=== PATIENT | female | born 1965 | race Caucasian/White ===

== ENCOUNTER 2016-06-23 01:45 | Inpatient (IN) | payer OTHER ==
[~2016-06-23] VITALS: Ht 157.5 cm; Wt 66.7 kg
[~2016-06-23 01:45] MED LIST: FERROUS SULFAT325 M3 PO; PROZAC20 M2 PO
--- NOTE | 2016-06-23 13:27 | Operative Report ---
Operative/Inv Procedure Report Surgery Date: 06/23/16 Name of Procedure: Right total hip arthroplasty Pre-Operative Diagnosis: Right hip osteoarthritis primary Post-Operative Diagnosis: Same final pathology pending Estimated Blood Loss: 100cc Surgeon/[employer] Manager: TRISTA DICKENS,Odin FERGUSON. Anesthesia: general endotracheal tube Implants: Blanchard secure fit size 7 femur with a 132 neck angle 36-2.5 Biolox femoral head 52 acetabulum Trident multihole Drains: None Specimens: Femoral head, acetabular reamings Microbiology: Urine Complications: None Condition: Stable Operative Indication: Patient is a 50-year-old woman who has a history of worsening hip pain which have interfere with normal activities of daily living. Conservative measures did not provide any significant long-term relief. Due to the ongoing problems she wished to proceed with total hip arthroplasty risks, benefits and expectations of surgical and further nonsurgical options were discussed including but not limited to persistent hip pain, need for subsequent surgery, infection DVT, injury to blood vessel or nerve, anesthesia risks leg length discrepancy dislocation Operative/Procedure Note Note: Patient was brought to the operating room and transferred to the operating table. Once under appropriate anesthesia the patient was placed into a left lateral decubitus position with right side up. All bony prominences well- padded. Axillary roll was placed right lower extremity was prepped and draped in standard fashion. Preoperative IV antibiotics were given prophylactically. A standard lateral incision was made for anticipated superior approach of the hip. The incision was taken down sharply to the underlying fascia. The fascia was incised in line with the skin incision. Hip was internally rotated placing the external rotators on tension. The piriformis was dissected off of the posterior capsule at its insertion site. Interval between the gluteus minimus tendon and the superior capsule was identified and a retractor was placed in this interval protecting the minimus tendon. A central portion of the posterior capsule was incised and reflected posteriorly for later repair. Superior and inferior portions of the capsule were excised. Hip was dislocated end-stage degenerative changes of the femoral head. Osteophyte formations circumferentially around the acetabulum were noted. Femoral neck cut was made based on preoperative templating and intraoperative measurements. Degenerative labrum was found to be calcified in resected circumferentially. He wears were used after retractors were placed and reamed up to a size 51 for anticipated insertion of a size 52. A size 50 trial was impacted in place to confirm circumferential reaming. After copious irrigation the definitive size 52 multi hole Trident acetabular component was impacted in place with excellent scratch fit. 2 screws are placed in the safe zone in standard fashion. After irrigation of the acetabular shell the definitive liner to accept a 36 mm head was impacted in place and the locking mechanism was confirmed. I placed a lap sponge to protect the polyethylene while preparing the femur. The lower external he was internally rotated to 90 and flexed to 60 retractors were applied and the box osteotome was used to lateralize my insertion site. Canal finder followed by hand reamers and power reamers up to a size 7 were used. I broached up to a size 7. I trialed a size 7 broach with a 132 neck angle. I found the hip to be stable. The definitive size was 36-2.5 femoral head. The hip was stable in all planes. No evidence of anterior instability with simultaneous extension and external rotation. No sign of posterior instability with simultaneous internal rotation adduction and flexion to greater than 90. Leg lengths were restored. Trial components were removed. The definitive size 7 femoral stem was impacted in place with excellent scratch fit. A -2.5 femoral head was chosen. The trunnion was dried and the definitive Biolox femoral head was impacted in place and the locking mechanism was confirmed. Hip was reduced again it was found to be stable in all planes. Copious irrigation of the hip followed. Every level of closure was followed by copious irrigation. The posterior capsule and external rotators were repaired. Fascia was repaired with #1 Vicryl suture. Subcutaneous tissues closed in 2 layers with 2-0 Vicryl due to the depth of the wound and skin was closed with gretta. Appropriate dressings were applied and patient was awakened and taken to recovery room in good condition. No intraoperative Locations. Blood loss was 100 mL Discharge Disposition: PACU
--- NOTE | 2016-06-23 14:08 | RADIOLOGY REPORT ---
EXAMINATION: XR HIP, RIGHT CLINICAL INFORMATION: Status post right total hip arthroplasty COMPARISON: None TECHNIQUE: Two views of the right hip. FINDINGS: Right total hip arthroplasty. Prosthesis is well seated. Intact hardware. No evidence of periprosthetic abnormal lucency. Subtle lucencies noted in the soft tissues and surgical gretta overlying the right hip region also compatible with recent postoperative change. IMPRESSION: Recent total hip arthroplasty. Postoperative changes.
--- NOTE | 2016-06-23 15:16 | NUR ---
PHYSICAL THERAPY: Pt S/P ELECTIVE R POSTERIOR SUSAN; RECENTLY ARRIVED TO FLOOR. ATTEMPTED TO SEE PATIENT THIS P.M., PER SURGICAL PA ABENA, PATIENT IS DEMONSTRATING TACYCARDIA AT REST AND LETHARGIC; ASKED TO HOLD P.T. EVALUATION AT THIS TIME AND F/U APPROPRIATE LATER TODAY OR TOMORROW MORNING ABLE.
[2016-06-23 15:27] VITALS: BP 138/78
--- NOTE | 2016-06-23 15:30 | PN- Orthopedic ---
Subjective Subjective: POST-OP NOTE: Reports "tired". Denies pain. No dizziness. No shortness of breath. No chest pains. Not yet out of bed. Objective Vital Signs and I&Os vitals: pulse 110s, bp 150s/70s, 98% 3 lpm u/o - total of 400 mls since OR (between pacu & OR) General - sleepy. comfortable. no acute distress. Lungs - clear bilaterally. no w/r/r. Cardiac - s1s2. tachycardic 110s, but regular Abdomen - soft. nontender - pinon draining clear, yellow urine. Extremities - warm bilaterally. no c/c/e. right hip dressing c/d/i. no hematoma. no drains. hip pillow in place. nvi. calves soft and nontender b/l. Current Medications: Current Medications Sig/Laurent Start time Last Medication Dose Route Stop Time Status Admin Al Hydroxide/Mg 30 ML Q6P PRN 06/23 1445 AC Hydroxide PO Dextrose/Lactated 1,000 ML Q13H 06/23 1445 AC 06/23 Ringer's IV 1442 Docusate Sodium 100 MG DAILY NEEDED PRN 06/23 1445 AC PO Ferrous Sulfate 325 MG DAILY 06/24 1000 AC PO Fluoxetine HCl 20 MG DAILY 06/24 1000 AC PO Morphine Sulfate 2 MG Q2P PRN 06/23 1445 AC IV Morphine Sulfate 4 MG Q1P PRN 06/23 1445 UNV IV Ondansetron HCl 4 MG Q6P PRN 06/23 1445 AC IV Oxycodone/ 1 TAB Q4P PRN 06/23 1445 AC Acetaminophen PO Oxycodone/ 2 TAB Q4P PRN 06/23 1445 AC Acetaminophen PO Patient Medication 1 UNIT 1700 06/23 1700 Teaching ED 06/23 1701 Patient Medication 1 UNIT ONE NR 06/23 1500 Teaching ED 06/23 2100 Polyethylene Glycol 17 GM DAILY NEEDED PRN 06/23 1445 AC PO Senna/Docusate Sodium 2 TAB AT BEDTIME NEED.. 06/23 1445 AC PO Vancomycin HCl 1,000 MG ONCE ONE 06/23 2200 AC Sodium Chloride 250 ML IV 06/23 2259 Vancomycin HCl 1,000 MG ONCE 06/23 0000 DC Sodium Chloride 250 ML IV 06/23 2359 Warfarin Sodium 5 MG COUMADIN 1700 ONE 06/23 1700 AC PO 05/15 1701 Results Last 48 Hours of Labs: Laboratory Tests 06/23 0855 Urines Urine Test NEGATIVE Assessment/Plan Assessment/Plan This 50 year old white female is POD#0 s/p right total hip replacement, unclear etiology of tachycardia which seems asymptomatic currently tolerating clears. advance diet as tolerated check labs, including cbc & bep plus pain control as needed mansi-operative vanco coumadin - dvt ppx pinon overnight for strict i/o's PT eval to d/w Core Measures/Miscellaneous Venous Thromboembolism VTE Risk Factors: Age > 40, Surgery VTE Contraindications: No Contraindications VTE Diagnosis: No Beta Daniela Is Beta Daniela a Home Med? No Antibiotics Is Patient on Antibiotics? Yes If Yes: prophylaxis
[2016-06-23 15:33] VITALS: BP 158/80
[2016-06-23 17:44] VITALS: BP 133/74
[2016-06-23 17:45] LABS: ABSOLUTE BASOPHIL COUNT 0 /CUMM (0.0-0.2); ABSOLUTE EOSINOPHIL COUNT 0 /CUMM (0.0-0.7); ABSOLUTE GRANULOCYTE CT 15.4 /CUMM (1.4-6.5); ABSOLUTE LYMPH COUNT 1.1 /CUMM (1.2-3.4); ABSOLUTE MONOCYTE COUNT 0.3 /CUMM (0.10-0.60); BASOPHIL % 0 % (0.0-2.0); EOSINOPHIL % 0 % (0-5); HEMATOCRIT 37.5 % (37-47); MEAN CORPUSCULAR HGB 29.9 PG (27.0-31.0); MEAN CORPUSCULAR HGB CONC 33.7 G/DL (33.0-37.0); MEAN CORPUSCULAR VOLUME 88.8 FL (81.0-99.0); MEAN PLATELET VOLUME 8.4 FL (7.4-10.4); PLATELET COUNT 262 /CUMM (130-400); RBC DISTRIBUTION WIDTH 13.5 % (11.5-14.5); RED BLOOD CELL CT 4.22 /CUMM (4.20-5.40); WHITE BLOOD CELL COUNT 16.9 /CUMM (4.8-10.8)
[2016-06-23 17:58] LABS: GRANULOCYTE % 91.5 % (42.2-75.2)
[2016-06-23 19:21] VITALS: BP 140/86
[2016-06-23 22:50] VITALS: BP 118/54
[2016-06-24 03:04] VITALS: BP 130/80
[2016-06-24 06:46] VITALS: BP 130/76
[2016-06-24 08:51] LABS: PT 14.1 SEC (9.4-12.5)
[2016-06-24 08:52] LABS: ABSOLUTE BASOPHIL COUNT 0 /CUMM (0.0-0.2); ABSOLUTE EOSINOPHIL COUNT 0.1 /CUMM (0.0-0.7); ABSOLUTE GRANULOCYTE CT 11.5 /CUMM (1.4-6.5); ABSOLUTE LYMPH COUNT 1.3 /CUMM (1.2-3.4); ABSOLUTE MONOCYTE COUNT 0.9 /CUMM (0.10-0.60); BASOPHIL % 0 % (0.0-2.0); EOSINOPHIL % 0.4 % (0-5); HEMATOCRIT 33.9 % (37-47); MEAN CORPUSCULAR HGB CONC 33.7 G/DL (33.0-37.0); MEAN PLATELET VOLUME 8.1 FL (7.4-10.4); PLATELET COUNT 247 /CUMM (130-400); RBC DISTRIBUTION WIDTH 13.1 % (11.5-14.5); RED BLOOD CELL CT 3.81 /CUMM (4.20-5.40); WHITE BLOOD CELL COUNT 13.8 /CUMM (4.8-10.8)
--- NOTE | 2016-06-24 09:45 | PN- Orthopedic ---
See Addendum Subjective Subjective: The patient seen this morning postoperative day #1. She reports that her pain is under adequate control and has no other complaints at the current time. Objective Vital Signs and I&Os Vital Signs Date Time Temp Pulse Resp B/P B/P Pulse O2 O2 Flow FiO2 Mean Ox Delivery Rate 06/24 0646 98.4 95 20 130/76 100 Nasal 2.5L Cannula 06/24 0304 98.6 95 20 130/80 99 Nasal 2.5L Cannula 06/24 0000 96 Nasal 2.5L Cannula 06/23 2250 99.2 100 20 118/54 99 Nasal 3.0L Cannula 06/23 1921 99.0 100 22 140/86 98 Nasal 3.0L Cannula 06/23 1744 97.8 97 16 133/74 97 Nasal 3.0L Cannula 06/23 1600 93 Nasal 2.0L Cannula 06/23 1533 110 158/80 06/23 1527 94 Nasal 2.0L Cannula 06/23 1527 97.1 68 20 138/78 94 Nasal 2.0L Cannula Intake & Output 06/24 1600 06/24 0800 /16 0000 06/23 1600 06/23 0800 05 0000 Intake Total 840 885 Output Total 1100 1400 Balance -260 -515 Intake, IV 600 225 Intake, Oral 240 660 Output, Urine 1100 1400 Patient 147 lb Weight Physical Exam: Gen.: Alert and in no obvious distress Skin: Warm and dry Extremities: Bilateral lower extremities are warm without calf tenderness or significant edema. Gross motor and sensory are intact. Right hip surgical dressing is clean, dry, and intact. Assessment/Plan Assessment/Plan Assessment: 50-year-old female status post right total hip arthroplasty postoperative day 1. The patient is progressing as expected and her pain is under adequate control. Plan: Out of bed with physical therapy Follow-up morning laboratory studies and dose Coumadin for an INR between 2 and 3 Continue current pain regiment Hep-Lock IV fluids GI and DVT prophylaxis First surgical dressing change tomorrow Core Measures/Miscellaneous Venous Thromboembolism VTE Risk Factors: Age > 40, Surgery VTE Contraindications: No Contraindications VTE Diagnosis: No Beta Daniela Is Beta Daniela a Home Med? No Antibiotics Is Patient on Antibiotics? No
[2016-06-24 09:50] LABS: GRANULOCYTE % 83.3 % (42.2-75.2)
[2016-06-24 12:00] VITALS: BP 118/70
[2016-06-24 22:26] VITALS: BP 120/72
[2016-06-25 07:03] VITALS: BP 120/70
--- NOTE | 2016-06-25 07:04 | PN- Orthopedic ---
See Addendum Subjective Subjective: The patient seen this morning postoperatively day #2. She has no complaints the current time he reports that her pain is more adequately managed with the current pain regiment. Objective Vital Signs and I&Os Vital Signs Date Time Temp Pulse Resp B/P B/P Pulse O2 O2 Flow FiO2 Mean Ox Delivery Rate 06/24 2225 99.5 94 18 120/72 97 Room Air 06/24 1200 99.4 83 20 118/70 99 Room Air Intake & Output 06/25 0806/25 0000 06/24 1600 06/24 0800 06/24 0000 06/23 1600 Intake Total 120 800 425 840 885 Output Total 300 770 724 6713 1400 Balance -180 500 25 -260 -515 Intake, IV 75 600 225 Intake, Oral 120 800 350 240 660 Number 0 Bowel Movements Output, Urine 300 663 344 6454 1400 Patient 147 lb Weight Physical Exam: Gen.: Alert and in no obvious distress Skin: Warm and dry Extremities: Bilateral lower extremities are warm without calf tenderness or significant edema. Gross motor and sensory are intact. Right hip surgical dressing was changed and the incision was clean with clips intact and no signs of infection. Assessment/Plan Assessment/Plan Assessment: 50-year-old female status post right total hip arthroplasty postoperative day #2. The patient is progressing as expected and her pain is under adequate control. Plan: Out of bed with physical therapy Follow-up morning laboratory studies and dose Coumadin for an INR between 2 and 3 Continue current pain regiment GI and DVT prophylaxis PRN pain medication Discharge home later today Core Measures/Miscellaneous Venous Thromboembolism VTE Risk Factors: Age > 40, Surgery VTE Contraindications: No Contraindications VTE Diagnosis: No Beta Daniela Is Beta Daniela a Home Med? No Antibiotics Is Patient on Antibiotics? No
--- NOTE | 2016-06-25 07:05 | Surg Short-stay <48hrs Dis Sum ---
Visit Information Visit Dates Admission Date: 06/23/16 Discharge Date: 06/25/16 Surgical Short Stay DC Summary Admission Diagnosis: Right hip degenerative joint disease Final Diagnosis: Same Procedure(s): Right hip total arthroplasty Summary/Significant Findings: The patient was admitted on 06/23/2016. She is brought to the operating theater that day and underwent a right total hip arthroplasty. Postoperative patient progressed as expected, she ambulated with physical therapy and her pain was under adequate control. Her Coumadin was dosed and she was discharged with an uneventful hospital course. Condition at Discharge: Stable Discharge Disposition: home health services Discharge instructions provided to patient/family: Yes Post discharge follow-up plan: Call the office to be seen in 3 weeks
[2016-06-25] MEDS ORDERED: COUMADIN5 M2 PO (07:07)
[2016-06-25] MEDS ORDERED: DILAUDID2 M1 PO (07:07)
[2016-06-25] MEDS ORDERED: COLACE100 M1 PO (07:07)
--- NOTE | 2016-06-25 07:14 | Patient Discharge Instructions ---
Discharge Instructions General Discharge Information You were seen/treated for: Right hip degenerative joint disease You had these procedures: Right total hip arthroplasty Watch for these problems: Significantly increased pain, difficulty ambulating, or temperatures over 101 Increased redness or drainage from incision No bath, but you may shower: Yes Other wound care: Daily dry dressing change to surgical site Special Instructions: See information booklet Surgical clips should be removed on postoperative day 15 and the incision should be reinforced with Steri-Strips Daily INR and dose Coumadin to reach a goal INR of 2-3 Diet Continue normal diet: Yes Activity Activity Self Limited: Yes Other activity limits: Ambulate with walker as instructed by physical therapy No driving or operating heavy machinery until off all pain medications and okay with your surgeon Acute Coronary Syndrome Inclusion Criteria At DC or during hospital stay patient has or had the following: ACS DIAGNOSIS No Discharge Core Measures Meds if any: Prescribed or Continued at Discharge Meds if any: NOT Prescribed or Continued at Discharge Congestive Heart Failure Inclusion Criteria At DC or during hospital stay patient has or had the following: CHF DIAGNOSIS No Discharge Core Measures Meds if any: Prescribed or Continued at Discharge Meds if any: NOT Prescribed or Continued at Discharge Cerebrovascular accident Inclusion Criteria At DC or during hospital stay patient has or had the following: CVA/TIA Diagnosis No Discharge Core Measures Meds if any: Prescribed or Continued at Discharge Meds if any: NOT Prescribed or Continued at Discharge Venous thromboembolism Inclusion Criteria VTE Diagnosis No VTE Type NONE VTE Confirmed by (Test) NONE Discharge Core Measures - Per Current guidelines, there needs to be overlap - treatment for the first 5 days of Warfarin therapy. - If discharged on Warfarin prior to 5 days of - overlap therapy, the patient will need to be - assessed for post discharge needs including - *Post discharge parental anticoagulation - *Warfarin and/or parental anticoagulation education - *Follow up date to check INR post discharge At least 5 days overlap therapy as Inpatient No Meds if any: Prescribed or Continued at Discharge Note: Overlap Therapy is Warfarin and Anticoagulant Meds if any: NOT Prescribed or Continued at Discharge
[2016-06-25 08:33] LABS: PT 13.8 SEC (9.4-12.5)
[2016-06-25 08:34] LABS: ABSOLUTE BASOPHIL COUNT 0 /CUMM (0.0-0.2); ABSOLUTE EOSINOPHIL COUNT 0.3 /CUMM (0.0-0.7); ABSOLUTE GRANULOCYTE CT 6.6 /CUMM (1.4-6.5); ABSOLUTE LYMPH COUNT 2.9 /CUMM (1.2-3.4); ABSOLUTE MONOCYTE COUNT 0.7 /CUMM (0.10-0.60); BASOPHIL % 0.1 % (0.0-2.0); EOSINOPHIL % 2.5 % (0-5); GRANULOCYTE % 62.9 % (42.2-75.2); HEMATOCRIT 29.7 % (37-47); MEAN CORPUSCULAR HGB 29.8 PG (27.0-31.0); MEAN CORPUSCULAR HGB CONC 33.7 G/DL (33.0-37.0); MEAN CORPUSCULAR VOLUME 88.4 FL (81.0-99.0); MEAN PLATELET VOLUME 8.3 FL (7.4-10.4); PLATELET COUNT 217 /CUMM (130-400); RBC DISTRIBUTION WIDTH 13.5 % (11.5-14.5); RED BLOOD CELL CT 3.36 /CUMM (4.20-5.40); WHITE BLOOD CELL COUNT 10.4 /CUMM (4.8-10.8)
[2016-06-25 09:39] VITALS: BP 118/70
--- NOTE | 2016-06-25 11:49 | RADIOLOGY REPORT ---
EXAMINATION: XR PORTABLE CHEST CLINICAL INFORMATION: Postop fever appear COMPARISON: None TECHNIQUE: Portable frontal view of the chest was obtained. FINDINGS: Patient is slightly rotated to the right. Both lungs are expanded without any acute pneumonic process. The heart size and pulmonary vascularity is normal. No gross bony abnormality seen. IMPRESSION: Unremarkable chest exam.
--- NOTE | 2016-06-25 14:34 | NUR ---
NURSING NOTE: PT STABLE FOR DISCHARGE PER MD. DR. FINN AND PA'S AWARE OF AM TEMP OF 100.1. DISCHARGE INSTRUCTIONS AND PRESCRIPTIONS GIVEN WITH VERBAL UNDERSTANDING
== END 2016-06-25 14:32 | disposition home health service (06) | DRG 470 ==
LOC: 2NB 01:45 → SDA 01:45 → ENRESERV 13:18 → 2NB 14:34 → ENPENDDIS 06-25 07:25 → 2NB 06-25 14:32
PROVIDERS: Physician Assistant; Physician Assistant Surgical; ADMIT Orthopaedic Surgery
PROC: 0SR904Z Replacement of Right Hip Joint with Ceramic on Polyethylene Synthetic Substitute, Open Approach (ICD-10-PCS; principal; 2016-06-23)
DX: M16.11 Unilateral primary osteoarthritis, right hip (principal); F32.9 Major depressive disorder, single episode, unspecified; K21.9 Gastro-esophageal reflux disease without esophagitis
CPT/HCPCS: 2NBP; 36415; 73501; 81003; 81025; 82436; 87086; 88304; 97110-GO; 97116-GO; 97161-GP; 97530-GO; J2405; J3370; J7040